=== PATIENT | female | born 1980 | race Asian ===

== ENCOUNTER 2022-01-30 18:27 | Emergency (ER) | payer OTHER ==
--- OUTSIDE RECORDS SUMMARY | 2022-01-30 18:29 | XMS REPORT | Continuity of Care Document ---
:1980 Author Organization [facility] t Address [address] [place] [address] Care Team Providers Name Role Phone Krupa Mcbride Attending Clinician Unavailable Bui_Q Attending Clinician Unavailable Krupa Mcbride Attending Clinician Unavailable Bui_Q Admitting Clinician Unavailable Physician, No Primary or Family Admitting Clinician Unavaila ble Payers Payer Name Policy Type Policy Number Effective Date Expiration Date S ource Problems This patient has no known problems. Allergies, Adverse Reactions, Alerts Allergy Allergy Status Severity Reaction(s) Onset Inactive Treating Comm ents Source Name Type Date Date Clinician No Known DA Active U [facility]- [facility] [place] No Known DA Active U 0 [facility] Medications This patient has no known medications. Procedures This patient has no known procedures. Encounters Start End Encounter Admission Attending Care Care Encounter Source Date/Time Date/Time Type Type Clinicians Facility Department ID 2021[facility]06[id number] Common 11:58:53 [id number] [facility] 2021-06-10 [facility] [id number] 2 Common 11:58:35 [id number] [facility] 2021-06-10 [facility] [id number] 2 Common 11:54:21 [id number] [facility] 2021-06-10 Outpatient Krupa Mcbride [facility] [id number] 2 Common 11:51:32 [id number] [facility] 2021-06-10 Outpatient Krupa Mcbride [facility] [id number] 2 Common 11:47:12 [id number] [facility] 2021-06-10 Outpatient Krupa Mcbride [facility] [id number] 2 Common 11:16:12 [id number] [facility] 2021-06-10 Outpatient Krupa Mcbride [facility] [id number] 2 Common 11:11:41 [id number] [facility] 2021-06-02 2021-06-02 Outpatient Bui_Q VFP VFP [id number] [facility] 01:09:00 01:09:00 [id number] [facility] 2020-09-10 2020-09-10 Outpatient Krupa Fletcher [facility] [id number] [facility] 00:03:20 00:03:20 78 [facility] 2020-08-25 2020-08-25 Outpatient Krupa Fletcher [facility] [id number] [facility] 12:50:00 12:50:[address] [facility] Results This patient has no known results.
[2022-01-30 19:32] LABS: Urine Blood Trace-lysed (Negative); Urine Glucose Negative (Negative); Urine Protein Negative (Negative); Urine Specific Gravity 1.025 (1.005-1.030); Urine pH 5.5 (5.0-7.0)
[2022-01-30] MEDS ORDERED: ACETAMINOPHEN 325 MG TABLET ONE (19:34)
[2022-01-30 20:38] LABS: Absolute Lymphocytes (CBC) 2.1 K/uL (0.7-4.9); Hematocrit 35.7 % (36.0-45.0); Lymphocytes % 19.8 % (15.3-44.8); MCV 89.2 fL (80-100); MPV 7.9 fL (7.6-11.3)
[2022-01-30 21:06] LABS: Potassium 3.6 mmol/L (3.5-5.1)
[2022-01-30 22:08] LABS: Urine Specific Gravity/Preg 1.025 (1.005-1.030)
[2022-01-30 22:35] LABS: Urine Bacteria <20 /HPF (<20); Urine Mucus Slight /HPF (None Seen); Urine RBC <5 /HPF (None Seen)
--- NOTE | 2022-01-30 22:35 | RAD REPORT ---
EXAM DESCRIPTION: US - Transvaginal OB - 01/30/2022 10:14 pm CLINICAL HISTORY: with vaginal bleeding COMPARISON: None. FINDINGS: The uterus measures 10 x 6 x 7 centimeters. A gestational sac measuring 1 centimeter is present in the region of left uterine fundus. It is not c learly visualized within the endometrial stripe. The sac lies about 6 millimeters from uterine wall. It does contain a yolk sac. No pole. Right ovary normal in size and echotexture. Left ovary not seen secondary to overlying bowel gas Right adnexal unremarkable No significant free fluid IMPRESSION: Gestational sac which is located in the region of the left uterine fundus near the uteri ne wall. It is not clearly visualized within the endometrial stripe. It is uncertain whether this rep resents a cornual ectopic or is intrauterine. This should be correlated clinically and wit h serial beta HCG levels. Close follow-up including an ultrasound in 3-4 days recommended as well
[2022-01-31 01:11] LABS: SARS-CoV-2 Antigen Rapid Res Negative (Negative)
--- NOTE | 2022-01-31 01:32 | ER ---
Nurse's Notes [facility] Name: Bobo Castro Age: 41 yrs Sex: Female : 1980 Arrival Date: 01/30/2022 Time: 18:29 Bed 15 Private MD: Diagnosis: Other specified related conditions, first trimester;Lower abdominal pain, unspecified-possible left cornual ectopic Presentation: 01/30 18:39 Chief complaint: Pelvic pain x 4 days. Yesterday and today had scant brownish vaginal hb discharge. Home test positive. LMP 12/14. Recently completed ABX for UTI. Coronavirus screen: At this time, the client does not indicate any symptoms associated with coronavirus-19. Ebola Screen: No symptoms or risks identified at this time. Risk Assessment: Do you want to hurt yourself or someone else? Patient reports no desire to harm self or others. Onset of symptoms was January 26, 2022. 18:39 Method Of Arrival: Ambulatory hb 18:39 Acuity: DAISY 3 hb 01/31 03:24 Initial Sepsis Screen: Does the patient meet any 2 criteria? No. Patient's initial lg3 sepsis screen is negative. Does the patient have a suspected source of infection? No. Patient's initial sepsis screen is negative. 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 - Social history:: Smoking status: Patient denies any tobacco usage or history of. Screenin:12 Abuse screen: Denies threats or abuse. Denies injuries from another. Nutritional lg3 screening: No deficits noted. Tuberculosis screening: No symptoms or risk factors identified. Fall Risk None identified. Assessment: 19:12 General: Appears in no apparent distress. comfortable, Behavior is calm, cooperative. lg3 Pain: Complains of pain in pelvis Pain currently is 4 out of 10 on a pain scale. Quality of pain is described as crampy, pressure, squeezing. Neuro: No deficits noted. Level of Consciousness is awake, alert, obeys commands, Oriented to person, place, time, situation. Cardiovascular: No deficits noted. Denies chest pain, shortness of breath, Capillary refill < 3 seconds Clubbing of nail beds is absent JVD is absent Patient's skin is warm and dry. Respiratory: No deficits noted. Airway is patent Respiratory effort is even, unlabored, Respiratory pattern is regular, symmetrical, Breath sounds are clear bilaterally. GI: Abdomen is flat, distended, Bowel sounds present X 4 quads. Abd is soft X 4 quads Abdomen is tender to palpation in suprapubic area, right lower quadrant and left lower quadrant Reports lower abdominal pain, cramping. : No deficits noted. No signs and/or symptoms were reported regarding the genitourinary system. EENT: No deficits noted. No signs and/or symptoms were reported regarding the EENT system. Derm: No deficits noted. No signs and/or symptoms reported regarding the dermatologic system. Skin is intact, is healthy with good turgor, Skin is dry, Skin is normal, Skin temperature is warm. Musculoskeletal: No deficits noted. No signs and/or symptoms reported regarding the musculoskeletal system. Circulation, motion, and sensation intact. Range of motion: intact in all extremities. 20:21 Reassessment: Patient appears in no apparent distress at this time. No changes from lg3 previously documented assessment. Patient and/or family updated on plan of care and expected duration. Pain level reassessed. Patient is alert, oriented x 3, equal unlabored respirations, skin warm/dry/pink. 22:17 Reassessment: Patient appears in no apparent distress at this time. No changes from lg3 previously documented assessment. Patient and/or family updated on plan of care and expected duration. Pain level reassessed. Patient is alert, oriented x 3, equal unlabored respirations, skin warm/dry/pink. 01/31 00:17 Reassessment: Patient appears in no apparent distress at this time. No changes from tw5 previously documented assessment. Patient and/or family updated on plan of care and expected duration. Pain level reassessed. Patient is alert, oriented x 3, equal unlabored respirations, skin warm/dry/pink. 01:21 Reassessment: Patient appears in no apparent distress at this time. No changes from tw5 previously documented assessment. Patient and/or family updated on plan of care and expected duration. Pain level reassessed. Patient is alert, oriented x 3, equal unlabored respirations, skin warm/dry/pink. 03:06 General: Report called to JACK Mcclelland with [facility] . lg3 Vital Signs: 01/30 18:39 BP 124 / 73; Pulse 96; Resp 16; Temp 98.1; Pulse Ox 100% on R/A; Weight 49.9 kg; Height hb 5 ft. (152.40 cm); Pain 4/10; 21:07 BP 121 / 74; Pulse 85; Resp 16 S; Pulse Ox 100% on R/A; lg3 22:42 BP 128 / 76; Pulse 76; Resp 17 S; Pulse Ox 100% on R/A; lg3 01/31 01:22 BP 117 / 82; Pulse 81; Resp 17; Pulse Ox 100% on R/A; tw5 01/30 18:39 Body Mass Index 21.48 (49.90 kg, 152.40 cm) hb ED Course: 01/30 18:29 Patient arrived in ED. am2 18:41 Triage completed. hb 18:42 Arm band placed on. hb 19:05 Beka Silverio MD is Attending Physician. nevaeh 19:05 Beka García PA is PHCP. cp 19:11 Rani Gutierrez, JACK is Primary Nurse. lg3 19:12 Patient has correct armband on for positive identification. Placed in gown. Bed in low lg3 position. Call light in reach. Side rails up X 1. Client placed on continuous cardiac and pulse oximetry monitoring. NIBP monitoring applied. Door closed. Noise minimized. Warm blanket given. Family accompanied patient. 19:39 Missed attempt(s): 22 gauge in left forearm. mh5 19:42 Pulse ox on. NIBP on. mh5 20:20 Abo/rh Typing Sent. lg3 20:20 Basic Metabolic Panel Sent. lg3 20:20 CBC with Diff Sent. lg3 20:20 Quantitative Hcg Sent. lg3 22:15 US Transvaginal Ob In Process Unspecified. EDMS 01/31 00:16 initiated a transfer with Ofelia from [facility] Transfer [place]. mw2 00:35 SARS RAPID Sent. tw5 00:41 COVID swab sent to lab. mh5 00:47 connected Beka MUELLER with the OB from [facility]. mw2 00:58 initiated a transfer with Rolanda from [facility] denied due to mw2 staffing. 01:04 initiated a transfer with Bisi from [facility]. mw2 01:52 administrative approval given by Bisi Be/ patient has been accepted to [address] to [address]/ Dr. George accepted the patient in transfer/report to be called to [phone]. 01:56 Inserted saline lock: 20 gauge in right antecubital area, using aseptic technique. as6 02:15 [facility] ETA 1 hour. mw2 03:23 No provider procedures requiring assistance completed. Patient transferred, IV remains lg3 in place. intact, No redness/swelling at site. Administered Medications: 01/30 19:31 Drug: Tylenol 650 mg Route: PO; lg3 20:03 Follow up: Response: No adverse reaction lg3 Medication: 01/31 03:24 VIS not applicable for this client. lg3 Outcome: 01:32 ER care complete, transfer ordered by . cp 03:24 Transferred by ground EMS to [facility], Transfer form completed. lg3 03:24 Condition: stable 03:25 Patient left the ED. lg3 Signatures: Dispatcher [employer] EDMS Beka Silverio MD MD cha Page, Corey, PA PA Melita Martins, JACK RN Praveena Gomes 5 Mayra Iyer amIsadora Anand mw2 Rani Gutierrez RN RN lg3 Meg Olvera 5 Noé Lewis RN RN as6 Corrections: (The following items were deleted from the chart) 01/30 18:42 18:39 Onset of symptoms was January 30, 2022 allie hb
--- NOTE | 2022-01-31 01:32 | EDPHYS ---
Physician Documentation [facility] Name: Bobo Castro Age: 41 yrs Sex: Female : 1980 Arrival Date: 01/30/2022 Time: 18:29 Bed 15 Private MD: ED Physician Beka Silverio HPI: 01/30 19:30 This 41 yrs old Female presents to ER via Ambulatory with complaints of Pelvic cp Pain. 19:30 The patient presents to the emergency department with abdominal pain, of the suprapubic cp area, vaginal bleeding, that is light. 19:30 The estimated gestational age is 6 weeks. cp 19:30 course: care: none, Leakage of Fluid: none appreciated, Ultrasound: cp the patient has not had an ultrasound. Previous pregnancies: in previous pregnancies patient has had no complications. Associated signs and symptoms: Pertinent positives: abdominal pain, Pertinent negatives: chest pain, dysuria, fever, vomiting. 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 - Social history:: Smoking status: Patient denies any tobacco usage or history of. ROS: 19:35 Abdomen/GI: Positive for abdominal pain, of the suprapubic area. cp 19:35 Eyes: Negative for injury, pain, redness, and discharge. cp 19:35 Constitutional: Negative for body aches, chills, fever. 19:35 Cardiovascular: Negative for chest pain, palpitations. 19:35 Respiratory: Negative for cough, shortness of breath, wheezing. 19:35 Back: Negative for pain at rest, pain with movement, radiated pain. 19:35 : Positive for vaginal bleeding, Negative for urinary symptoms. 19:35 Neuro: Negative for altered mental status, headache, weakness. 19:35 All other systems are negative. Exam: 19:40 Constitutional: The patient appears in no acute distress, alert, awake, non-toxic, well cp developed, well nourished, uncomfortable. 19:40 Head/Face: Normocephalic, atraumatic. cp 19:40 Eyes: Periorbital structures: appear normal, Conjunctiva: normal, no exudate, no injection, Sclera: no appreciated abnormality, Lids and lashes: appear normal, bilaterally. 19:40 ENT: External ear(s): are unremarkable, Nose: is normal, Mouth: Lips: moist, Oral mucosa: moist, Posterior pharynx: Airway: no evidence of obstruction, patent. 19:40 Chest/axilla: Inspection: normal. 19:40 Cardiovascular: Rate: normal, Rhythm: regular. 19:40 Respiratory: the patient does not display signs of respiratory distress, Respirations: normal, no use of accessory muscles, no retractions, labored breathing, is not present, Breath sounds: are clear throughout, no decreased breath sounds, no stridor, no wheezing. 19:40 Abdomen/GI: Inspection: abdomen appears normal, Bowel sounds: active, all quadrants, Palpation: soft, in all quadrants, mild abdominal tenderness, in the suprapubic area, rebound tenderness, is not appreciated, involuntary guarding, is not appreciated. 19:40 Back: CVA tenderness, is absent. 19:40 Neuro: Orientation: to person, place \T\ time. Mentation: is normal. Vital Signs: 18:39 BP 124 / 73; Pulse 96; Resp 16; Temp 98.1; Pulse Ox 100% on R/A; Weight 49.9 kg; Height hb 5 ft. (152.40 cm); Pain 4/10; 21:07 BP 121 / 74; Pulse 85; Resp 16 S; Pulse Ox 100% on R/A; lg3 22:42 BP 128 / 76; Pulse 76; Resp 17 S; Pulse Ox 100% on R/A; lg3 01/31 01:22 BP 117 / 82; Pulse 81; Resp 17; Pulse Ox 100% on R/A; tw5 01/30 18:39 Body Mass Index 21.48 (49.90 kg, 152.40 cm) hb MDM: 01/30 19:05 Patient medically screened. nevaeh 20:00 Differential diagnosis: STD, ectopic . cp 23:15 Data reviewed: vital signs, nurses notes, lab test result(s), radiologic studies, cp ultrasound, I have discussed the patient's presentation/case with the attending Emergency Department Physician;. 23:45 Physician consultation: Zach Cade MD regarding patient's condition, after a cp discussion of the case, a recommendation for transfer for higher level of care is made. 01/30 19:19 Order name: Abo/rh Typing; Complete Time: 21:29 01/30 19:19 Order name: Basic Metabolic Panel; Complete Time: 23:08 01/30 19:19 Order name: CBC with Diff; Complete Time: 20:54 01/30 20:54 Interpretation: Normal except: HGB 11.9; HCT 35.7. 01/30 19:19 Order name: Quantitative Hcg; Complete Time: 23:08 01/30 19:32 Order name: Urine Dipstick-Ancillary; Complete Time: 20:54 EDMS 01/31 00:53 Interpretation: Normal except: UBLD Trace-lysed. 01/30 19:41 Order name: Urine --Ancillary (enter results); Complete Time: 23:08 mw2 01/30 19:19 Order name: IV Saline Lock; Complete Time: 01:56 01/30 19:19 Order name: Labs collected and sent; Complete Time: 20:20 01/30 19:19 Order name: NPO; Complete Time: 19:31 01/30 21:29 Order name: US Transvaginal Ob; Complete Time: 23:08 01/30 23:09 Interpretation: Report reviewed. 01/30 21:34 Order name: ABO/RH no charge; Complete Time: 23:08 EDMS 01/30 21:56 Order name: Urine Microscopic Only; Complete Time: 23:08 01/31 00:25 Order name: SARS RAPID; Complete Time: 01:42 2 01/30 19:19 Order name: Urine Dipstick-Ancillary (obtain specimen); Complete Time: 19:31 01/30 19:19 Order name: Urine Test (obtain specimen); Complete Time: 19:31 cp Administered Medications: 19:31 Drug: Tylenol 650 mg Route: PO; lg3 20:03 Follow up: Response: No adverse reaction lg3 Disposition Summary: 01/31/22 01:32 Transfer Ordered Transfer Location: [facility] cp Reason: Higher level of care cp Condition: Stable cp Problem: new cp Symptoms: have improved cp Accepting Physician: DR De La Torre(01/31/22 03:25) lg3 Diagnosis - Other specified related conditions, first trimester cp - Lower abdominal pain, unspecified - possible left cornual ectopic cp Forms: - Medication Reconciliation Form cp - SBAR form cp Signatures: Dispatcher [employer] EDBeka Stephen MD MD cha Page, Corey, Melita Ross cp, RN RN Rani Gallardo RN RN lg3 Corrections: (The following items were deleted from the chart) 01/31 02:08 01:32 Doctor shivam langley 03:25 02:08 DR Britt langley lg3
--- NOTE | 2022-01-31 10:55 | CON ---
A 41-year-old female with suspected cornual . Quantitative level of 13,000. Ultrasound could not see heartbeat. The patient was having mild discomfort and some spotting. It was decided after evaluation that this would be a high risk and of course, probably would need termination. Methotrexate at the least and possibly cornual resection. Because the quantitative level was over 5000, we know that methotrexate is not as effective and therefore I have referred and transferred the patient to a high-risk facility for tertiary care abilities. I think this is prudent given the location of the suspected gestational material. Followup can be done here locally once this has been resolved at the tertiary care center. MARLENI/LEONARDO Voice ID: [id number] Report ID: [id number] MTDD
[2022-02-01 17:21] VITALS: TEMP 98.1; O2SAT 100
[2022-02-01 17:30] VITALS: BP 117/82
== END 2022-01-31 03:25 | disposition short-term general hospital (02) ==
LOC: ER 18:27
DX: O26.891 Other specified pregnancy related conditions, first trimester (principal); Z3A.01 Less than 8 weeks gestation of pregnancy; Z20.822 Contact with and (suspected) exposure to COVID-19
CPT/HCPCS: 36415; 76817; 80048; 81003; 81015; 81025; 84702; 85025; 86900; 86901; 87811; 99285